=== PATIENT | female | born 1995 | race Caucasian/White ===

== ENCOUNTER 2022-06-10 05:03 | Observation (INO) ==
[2022-06-10] MEDS ORDERED: ONDANSETRON INJ 2 MG/ML 2 ML VIAL IV STA (05:24)
[2022-06-10] MEDS ORDERED: SODIUM CHLORIDE 0.9% 1000ML 1,000 ML IV STA (05:24)
--- NOTE | 2022-06-10 06:01 | Emergency Department Note ---
Impression & Plan Abdominal pain, Nausea & vomiting ED Provider Note CHIEF COMPLAINT: Acute appendicitis HISTORY OF PRESENT ILLNESS: This 26-year-old female patient presents to the emergency department via private vehicle for evaluation of acute appendicitis. The patient states she was seen at [facility] 1 week ago and diagnosed with acute appendicitis with perforation. The patient was treated with IV antibiotics and subsequently discharged on oral Augmentin which she has been taking since that time. Over the weekend, she developed increased pain in the right lower quadrant and tonight she had an episode of vomiting, prompting her to come to the emergency department for evaluation. The patient denies fever. She is not vomiting blood. No diarrhea or constipation. The patient has not eaten or drank anything since 5 PM yesterday. She notes she is scheduled for 06/18/2022 with the surgeon for appendectomy. REVIEW OF SYSTEMS: A 10 system review of systems was performed with positives and pertinent negatives listed in the history of present illness. All other systems were reviewed and are negative. ALLERGIES: None PHYSICAL EXAM: VITALS: Vitals are noted on the nurse's note and reviewed by myself. Vital signs stable. GENERAL: This is a 26 year old female, in no acute distress, nondiaphoretic, well-developed well-nourished. SKIN: The skin was without rashes, erythema, edema, or bruising. There is no tenting of the skin. Capillary refill less than 2 seconds. HEAD: Normocephalic atraumatic. EARS: External auditory canals clear, tympanic membranes pearly harper without erythema or effusion bilaterally. EYES: Pupils equal round and reactive to light and accommodation. Conjunctivae without injection, sclerae without icterus. Extraocular movements intact. NOSE: Patent, turbinates without inflammation or discharge. No sinus tenderness. MOUTH: Mucous membranes moist. Tonsils are not enlarged. Pharynx without erythema or exudate. Uvula midline. Airway patent. Tongue does not deviate. NECK: Supple without nuchal rigidity. No lymphadenopathy. No thyromegaly. Cervical spine is nontender. No JVD. HEART: Regular rate and rhythm without murmurs gallops or rubs. LUNGS: Clear to auscultation bilaterally without wheezes, rales or rhonchi. No retractions or accessory muscle use. ABDOMEN: Positive bowel sounds x 4. Right lower quadrant tenderness to palpation over McBurney's point. The abdomen is otherwise soft, nontender, without masses or organomegaly. Mclain sign negative. No guarding or rebound tenderness. No CVA tenderness bilaterally MUSCULOSKELETAL: No muscle atrophy, erythema, or edema noted. Full range of motion without joint tenderness in all extremities. No tenderness to palpation. Normal gait. Strength 5/5 throughout. NEURO: Patient was alert and oriented to person place and time. Normal sensation to light and sharp touch. Deep tendon reflexes 2+ throughout. No focal neurological deficits. Outside records reviewed EMERGENCY DEPARTMENT COURSE: The patient was seen and evaluated as above. Outside records were obtained from [facility] by case management. These were reviewed by myself. I did discuss the case briefly with Misael Spencer PA-C who spoke with the on-call surgeon who requested we repeat all labs and CT imaging. IV access was obtained, labs drawn. No leukocytosis, anemia, thrombocytopenia. Renal, hepatic function and electrolytes without significant abnormality. hCG negative. Urinalysis negative for blood and evidence of infection. COVID-19 testing is negative. The patient is currently prepping for CT abdomen/pelvis with IV and oral contrast. The case was signed out to Gaurav Scott PA-C pending CT imaging and surgery consult. Please see his dictation regarding final disposition and plan Etiologies such as appendicitis, diverticulitis, obstruction, inflammatory bowel disease, renal colic, PUD, biliary pathology, pancreatitis, mesenteric ischemia, aortic pathology, infections, genitourinary, UTI, perforated viscus, as well as others were entertained. I attest that I have personally reviewed the patient's current medication list. Patient was found to have normal blood pressure on screening and does not require follow-up. The chart was completed utilizing [employer] Speech voice recognition software. Grammatical errors, random word insertions, pronoun errors, and incomplete sentences are an occasional consequence of this system due to software limitations, ambient noise, and hardware issues. Any formal questions or concerns about the content, text, or information contained within the body of this dictation should be directly addressed to the provider for clarification. Past Med/Surg History Medical History Acute appendicitis Social History Smoking Status: Never smoker Feels Safe at Home: Yes Results & Data (ED) Vital Signs Vital Signs - 24 hr 06/10/22 05:07 06/10/22 06:00 06/10/22 06:01 Temperature 36.8 C 36.6 C Temperature Source Temporal Artery Scan Oral Pulse Rate 87 89 Pulse Rate [Apical] 89 Pulse Rhythm Regular Pulse Rhythm [Apical] Regular Pulse Strength [Apical] Normal Respiratory Rate 20 16 16 Respiratory Effort / Characteristics Non-Labored Non-Labored Spontaneous Respiratory Depth Normal Normal Respiratory Pattern Regular Blood Pressure 138/91 Blood Pressure [Left Arm] 109/72 Blood Pressure Mean 106 Blood Pressure Mean [Left Arm] 84 Blood Pressure Position [Left Arm] Semi-fowlers Pulse Oximetry 99 98 99 Oxygen Delivery Method Room Air Room Air Room Air Sepsis Recent Fever Within 48 Hours No Sepsis New/Unexplained Change in Mental Status N/A Sepsis Action Taken by Nursing No Action Required Laboratory Data 06/10/22 05:50 06/10/22 05:50 Lab Results 06/10/22 06/10/22 06/10/22 Range/Units 05:50 05:50 05:50 WBC 8.12 (4.8-10.8) K/ul RBC 4.47 (4.20-5.40) M/uL Hgb 14.2 (12.0-16.0) g/dl POC Hgb (12.0-16.0) g/dl Hct 41.7 (37.0-47.0) % POC Hct (37-47) % MCV 93.3 (80.0-100.0) fL MCH 31.8 (25.0-34.0) pg MCHC 34.1 (32.0-36.0) g/dL RDW Std Deviation 41.9 (36.4-46.3) fL RDW Coeff of Jarad 12.3 (11.5-14.5) % Plt Count 281 (130-400) K/uL MPV 10.4 (9.4-12.4) fL Immature Gran % (Auto) 0.4 % Neut % (Auto) 53.8 % Lymph % (Auto) 33.0 % Lawrence % (Auto) 6.4 % Eos % (Auto) 5.0 % Baso % (Auto) 1.4 % Neut # (Auto) 4.37 (1.40-6.50) K/uL Lymph # (Auto) 2.68 (1.2-3.4) K/uL Lawrence # (Auto) 0.52 (0.11-0.59) K/uL Eos # (Auto) 0.41 (0-0.50) K/uL Baso # (Auto) 0.11 (0-0.2) K/uL Immature Gran # (Auto) 0.03 (0.01-0.20) K/uL POC Sodium (135-144) mmol/L Sodium 139 (136-145) mmol/L POC Potassium (3.3-5.0) mmol/L Potassium 3.7 (3.5-5.1) mmol/L POC Chloride (101-112) mmol/L Chloride 103 (98-107) mmol/L Carbon Dioxide 27 (21-32) mmol/L POC Total CO2 (24-31) mmol/L Anion Gap 9 (3-11) POC Anion Gap (16-25) mmol/L POC BUN (7-18) mg/dl BUN 6 (6-23) mg/dl Creatinine 0.55 L (0.6-1.2) mg/dl POC Creatinine (0.6-1.3) mg/dl Est Cr Clr Drug Dosing 129.2 ml/min Est GFR ( Amer) > 150.0 ml/min Est GFR (Non-Af Amer) 130.4 ml/min BUN/Creatinine Ratio 10.9 (10-20) Glucose 98 (70-99(Fasting)) mg/dl POC Glucose (other) (70-99) mg/dl Calcium 9.5 (8.6-10.3) mg/dl POC Ioniz Calcium Keiko (1.12-1.32) mmol/l Total Bilirubin 0.3 (0.2-1.0) mg/dl AST 16 (13-39) U/L ALT 25 (7-52) U/L Alkaline Phosphatase 80 (34-104) U/L Total Protein 7.6 (6.0-8.3) gm/dl Albumin 4.8 (3.4-5.0) gm/dl Globulin 2.8 (2.5-4.0) gm/dl Albumin/Globulin Ratio 1.7 (0.9-2) Lipase 12 (11-82) U/L HCG, Qual Negative (Negative) Urine Color Urine Appearance (Clear) Urine pH (4.5-7.5) Ur Specific [place] (1.000-1.030) Urine Protein (Negative) Urine Glucose (UA) (Negative) Urine Ketones (Negative) Urine Blood (Negative) Urine Nitrite (Negative) Urine Bilirubin (Negative) Urine Urobilinogen (Negative) Ur Leukocyte Esterase (Negative) SARS-CoV-2, RNA, NAAT (NEGATIVE) 06/10/22 06/10/22 06/10/22 Range/Units 06:05 06:08 06:09 WBC (4.8-10.8) K/ul RBC (4.20-5.40) M/uL Hgb (12.0-16.0) g/dl POC Hgb 15.3 (12.0-16.0) g/dl Hct (37.0-47.0) % POC Hct 45 (37-47) % MCV (80.0-100.0) fL MCH (25.0-34.0) pg MCHC (32.0-36.0) g/dL RDW Std Deviation (36.4-46.3) fL RDW Coeff of Jarad (11.5-14.5) % Plt Count (130-400) K/uL MPV (9.4-12.4) fL Immature Gran % (Auto) % Neut % (Auto) % Lymph % (Auto) % Lawrence % (Auto) % Eos % (Auto) % Baso % (Auto) % Neut # (Auto) (1.40-6.50) K/uL Lymph # (Auto) (1.2-3.4) K/uL Lawrence # (Auto) (0.11-0.59) K/uL Eos # (Auto) (0-0.50) K/uL Baso # (Auto) (0-0.2) K/uL Immature Gran # (Auto) (0.01-0.20) K/uL POC Sodium 139 (135-144) mmol/L Sodium (136-145) mmol/L POC Potassium 3.7 (3.3-5.0) mmol/L Potassium (3.5-5.1) mmol/L POC Chloride 103 (101-112) mmol/L Chloride (98-107) mmol/L Carbon Dioxide (21-32) mmol/L POC Total CO2 26 (24-31) mmol/L Anion Gap (3-11) POC Anion Gap 15.0 L (16-25) mmol/L POC BUN 5 L (7-18) mg/dl BUN (6-23) mg/dl Creatinine (0.6-1.2) mg/dl POC Creatinine 0.5 L (0.6-1.3) mg/dl Est Cr Clr Drug Dosing ml/min Est GFR ( Amer) ml/min Est GFR (Non-Af Amer) ml/min BUN/Creatinine Ratio (10-20) Glucose (70-99(Fasting)) mg/dl POC Glucose (other) 96 (70-99) mg/dl Calcium (8.6-10.3) mg/dl POC Ioniz Calcium Keiko 1.07 L (1.12-1.32) mmol/l Total Bilirubin (0.2-1.0) mg/dl AST (13-39) U/L ALT (7-52) U/L Alkaline Phosphatase (34-104) U/L Total Protein (6.0-8.3) gm/dl Albumin (3.4-5.0) gm/dl Globulin (2.5-4.0) gm/dl Albumin/Globulin Ratio (0.9-2) Lipase (11-82) U/L HCG, Qual (Negative) Urine Color Yellow Urine Appearance Clear (Clear) Urine pH 7.0 (4.5-7.5) Ur Specific [place] 1.005 (1.000-1.030) Urine Protein Negative (Negative) Urine Glucose (UA) Negative (Negative) Urine Ketones Negative (Negative) Urine Blood Negative (Negative) Urine Nitrite Negative (Negative) Urine Bilirubin Negative (Negative) Urine Urobilinogen Negative (Negative) Ur Leukocyte Esterase Negative (Negative) SARS-CoV-2, RNA, NAAT NEGATIVE (NEGATIVE) Administered Medications Discontinued Medications Sodium Chloride (Nss 1000ml) 1,000 mls @ 999 mls/hr IV .Q1H1M STA Stop: 06/10/22 06:24 Last Admin: 06/10/22 06:15 Dose: 999 mls/hr Documented By: ADELIA Ondansetron HCl (Ondansetron Inj 2 Mg/Ml 2 Ml Vial) 4 mg IV NOW STA Stop: 06/10/22 05:25 Last Admin: 06/10/22 06:16 Dose: 4 mg Documented By: ADELIA Discharge Plan Visit Data Chief Complaint: Abdominal Pain Stated Complaint: APPENDEX BURST LAST WEEK,PAIN, VOMITING ED Provider: Jo Ann Baer ED Midlevel Provider: Glenna Marsh Discharge Problem: Abdominal pain, Nausea & vomiting Patient Disposition: Still a Patient Forms Stand Alone Forms: [facility] Referrals Referrals: Jose G Ambriz [Primary Care Provider] -
[2022-06-10 06:23] LABS: iSTAT Creatinine 0.5 mg/dl (0.6-1.3); iSTAT Hemoglobin 15.3 g/dl (12.0-16.0); iSTAT Ionized Calcium 1.07 mmol/l (1.12-1.32); iSTAT Potassium 3.7 mmol/L (3.3-5.0)
[2022-06-10 06:29] LABS: Appearance Urine Clear (Clear); Bilirubin Urine Negative (Negative); Blood Urine Negative (Negative); Color Urine Yellow; Glucose Urine UA Negative (Negative); Ketones Urine Negative (Negative); Leukocyte Esterase Urine Negative (Negative); Nitrite Urine Negative (Negative); Protein Urine Negative (Negative); Specific Gravity Urine 1.005 (1.000-1.030); Urobilinogen Urine Negative (Negative)
[2022-06-10 06:42] LABS: Basophils # (auto) 0.11 K/uL (0-0.2); Basophils % (auto) 1.4 %; Eosinophils # (auto) 0.41 K/uL (0-0.50); Hematocrit (blood only) 41.7 % (37.0-47.0); Hemoglobin 14.2 g/dl (12.0-16.0); Immature Granulocytes # (auto) 0.03 K/uL (0.01-0.20); Immature Granulocytes % (auto) 0.4 %; Lymphocytes # (auto) 2.68 K/uL (1.2-3.4); Mean Corpuscular Hemoglobin 31.8 pg (25.0-34.0); Mean Corpuscular Hgb Conc 34.1 g/dL (32.0-36.0); Mean Corpuscular Volume 93.3 fL (80.0-100.0); Mean Platelet Volume 10.4 fL (9.4-12.4); Monocytes # (auto) 0.52 K/uL (0.11-0.59); Monocytes % (auto) 6.4 %; Neutrophils # (auto) 4.37 K/uL (1.40-6.50); Neutrophils % (auto) 53.8 %; Platelet Count 281 K/uL (130-400); RDW Coefficient of Variation 12.3 % (11.5-14.5); RDW Standard Deviation 41.9 fL (36.4-46.3); Red Blood Count 4.47 M/uL (4.20-5.40); White Blood Count 8.12 K/ul (4.8-10.8)
[2022-06-10 06:46] LABS: Pregnancy Test, Serum Negative (Negative)
[2022-06-10 06:49] LABS: Alanine Aminotransferase 25 U/L (7-52); Albumin Globulin Ratio 1.7 (0.9-2); Albumin Level 4.8 gm/dl (3.4-5.0); Alkaline Phosphatase 80 U/L (34-104); Anion Gap 9 (3-11); Aspartate Aminotransferase 16 U/L (13-39); BUN Creatinine Ratio 10.9 (10-20); Bilirubin,Total 0.3 mg/dl (0.2-1.0); Blood Urea Nitrogen 6 mg/dl (6-23); Calcium 9.5 mg/dl (8.6-10.3); Carbon Dioxide 27 mmol/L (21-32); Chloride 103 mmol/L (98-107); Creatinine Clr Calc Pharmacy 129.2 ml/min; Est GFR (African American) > 150.0 ml/min; Est GFR (Non-African American) 130.4 ml/min; Globulin 2.8 gm/dl (2.5-4.0); Glucose 98 mg/dl (70-99(Fasting)); Lipase 12 U/L (11-82); Potassium 3.7 mmol/L (3.5-5.1); Sodium 139 mmol/L (136-145); Total Protein 7.6 gm/dl (6.0-8.3)
--- NOTE | 2022-06-10 08:11 | Emergency Department Note ---
ED Visit Note Patient signed out to me by my colleague Glenna Marsh PA-C at time of shift change pending CT of the abdomen and pelvis with IV and oral contrast. Patient is here for evaluation of recurrent right lower abdominal pain, was diagnosed with acute appendicitis with perforation 1 week ago at an outside facility, treated with antibiotics and subsequently discharged on Augmentin. She recently developed an increased amount of pain in in the right lower abdomen and had an episode of vomiting. Is scheduled to see general surgery through [facility] for appendectomy. She has received IV fluids and Zofran. When I reevaluated the patient, she was resting comfortably, no active vomiting, pain was under control. She stated that she did still have some discomfort when changing positions. Her CT abdomen and pelvis demonstrates acute appendicitis. I discussed the case with Samantha Galvan PA-C with general surgery who evaluated the patient at bedside and coordinated with Dr. Rutherford and the patient will be taken to the OR. She asked that the patient receive a dose of Zosyn in the emergency department which was ordered. -
[2022-06-10] MEDS ORDERED: OPTIRAY 320 100ml IV ONE (08:15)
--- NOTE | 2022-06-10 08:53 | CT Scan Report ---
ABDOMEN AND PELVIS CT WITH IV AND ORAL CONTRAST CT DOSE: 285.82 mGy.cm HISTORY: Acute right lower quadrant abdominal pain RLQ pain, +appendicitis 06/02/2022 TECHNIQUE: Multiaxial CT images of the abdomen and pelvis were performed following the IV administrat ion of 86 cc of Optiray and oral contrast. A dose lowering technique was utilized adhering to the pr inciples of BAUDILIO. COMPARISON STUDY: None. FINDINGS: The lung bases are clear. The liver, spleen, gallbladder, pancreas, kidneys, and adrenal gl ands are within normal limits. There is no bowel obstruction. There is an 8 mm appendicolith within t he proximal appendiceal lumen. The appendix is dilated measuring up to 1.4 cm and demonstrates thicke aixa wall with mild adjacent periappendiceal inflammation. The appendix is not opacified with contrast . Ileocolic lymph nodes measure up to 1.4 x 0.8 cm. The pelvic organs are unremarkable. Transitional lumbosacral anatomy. No suspicious lytic or blastic osseous lesions. IMPRESSION: 1. Acute uncomplicated appendicitis with appendicolith. 2. No pneumoperitoneum or abscess. 3. Prominent ileocolic lymph nodes are likely reactive. ACT 112: Negative or not required by law. The above report was generated using voice recognition software. It may contain grammatical, syntax o r spelling errors. Electronically signed by: Roberth Villa M.D. 06/10/2022 8:33 AM
[2022-06-10] MEDS ORDERED: PIPERACILLIN/TAZOBACTAM 4.5 GM/120 ML BAG IV ONE (09:16)
--- NOTE | 2022-06-10 09:37 | History & Physical Report ---
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 Of significance the patient was recently evaluated and admitted to [facility] 1 week ago with appendicitis with appendicolith. Due to concern for perforation she was admitted for IV abx for 3 days and discharged to home on oral augmentin with plans for interval appendectomy. She was feeling well up until this weekend when she felt as though her abdominal pain was returning and this was associated with nausea/vomiting. In the ER she underwent a CT ap that showed acute appendicitis with appendicolith without evidence of perforation or abscess. WBC 8. Vital signs are stable. On exam abdomen is soft, non distended, with discomfort elicited in the RLQ and supra-pubic regions. Based on history, exam, imaging we will proceed with taking the patient to the OR for a laparoscopic appendectomy today. She is agreeable with the plan. Continue NPO with IVF. She will be given a dose of pre- op abx. Dr. Lee will be by to obtain consent. As above. Persistent right lower quadrant pain that began about 2 days after discharge from [facility]. She is getting frustrated and would like to proceed with surgery if possible. CT scan does not show any abscess or perforation. We discussed her risks as well as options. We discussed potential risks of bleeding infection injury to another organ such as ureter or bowel leaks DVT PE PA CVA etc. Following our discussion I answered all of her questions. We will proceed today with laparoscopic appendectomy possible open. 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 Of significance the patient was recently evaluated and admitted to [facility] 1 week ago with appendicitis with appendicolith. She actually says she was having pain for a wk prior to evaluation there, but had a miscarriage a few wks ago and thought her pain was related to that. On review of her imaging there was some concern for perforation, therefore she was admitted for IV abx for 3 days and discharged to home on oral augmentin with plans for interval appendectomy. Patient reports she was discharged last thursday and was feeling well and pain free. Unfortunately starting Thursday evening she had some return of abdominal pain that she tried to ignore. Then yesterday evening she developed nausea with multiple bouts of emesis with increasing abdominal pain and decided to come into our ER for evaluation. In the ER she underwent a CT ap that showed acute appendicitis with appendicolith without evidence of perforation or abscess. Also of note she mentions being diagnosed with appendicitis at 17 years old, but due to having PVC's around that time it was postpone until after ablation and she never underwent appendectomy. She has no past surgical history on her abdomen. She has been NPO since yesterday. Allergies Allergy/AdvReac Type Severity Reaction Status Date / Time No Known Allergies Allergy Unverified 06/10/22 10:24 Home Medications Medication Instructions Recorded Confirmed Type amoxicillin 875 mg-potassium 1 tab PO BID 06/10/22 06/10/22 History clavulanate 125 mg tablet Past Med/Surg History Medical History Acute appendicitis Social History Smoking Status: Never smoker Feels Safe at Home: Yes Review of Systems Constitutional: + chills and + sweats; no fever Respiratory: no dyspnea Cardiovascular: no chest pain Gastrointestinal: + abdominal pain (RLQ and across lower abdomen bilaterally), + bloating, + nausea and + vomiting; no change in bowel habits Physical Exam Physical Exam: awake/alert, no distress Constitutional: well developed and well nourished Respiratory: normal respiratory effort Cardiovascular: Rate/Rhythm: regular rate and regular rhythm Gastrointestinal (Abdomen): Inspection/Auscultation: abdomen not distended Percussion/Palpation: + abdomen tender (ttp in RLQ and supra pubic region) and abdomen soft Results & Data Results & Data Vital Signs (Past 12 Hours) Vital Signs Temp Pulse Pulse Resp BP BP Pulse Ox 06/10/22 07:38 86 14 114/69 100 06/10/22 06:01 36.6 C 89 16 109/72 99 06/10/22 06:00 89 16 98 06/10/22 05:07 36.8 C 87 20 138/91 99 O2 Del Method 06/10/22 07:38 Room Air 06/10/22 06:01 Room Air 06/10/22 06:00 Room Air 06/10/22 05:07 Room Air Diagnostic Findings ABDOMEN AND PELVIS CT WITH IV AND ORAL CONTRAST CT DOSE: 285.82 mGy.cm HISTORY: Acute right lower quadrant abdominal pain RLQ pain, +appendicitis 06/02/2022 TECHNIQUE: Multiaxial CT images of the abdomen and pelvis were performed following the IV administration of 86 cc of Optiray and oral contrast. A dose lowering technique was utilized adhering to the principles of ALARA. COMPARISON STUDY: None. FINDINGS: The lung bases are clear. The liver, spleen, gallbladder, pancreas, kidneys, and adrenal glands are within normal limits. There is no bowel obstruction. There is an 8 mm appendicolith within the proximal appendiceal lumen. The appendix is dilated measuring up to 1.4 cm and demonstrates thickened wall with mild adjacent periappendiceal inflammation. The appendix is not opacified with contrast. Ileocolic lymph nodes measure up to 1.4 x 0.8 cm. The pelvic organs are unremarkable. Transitional lumbosacral anatomy. No suspicious lytic or blastic osseous lesions. IMPRESSION: 1. Acute uncomplicated appendicitis with appendicolith. 2. No pneumoperitoneum or abscess. 3. Prominent ileocolic lymph nodes are likely reactive. ACT 112: Negative or not required by law. The above report was generated using voice recognition software. It may contain grammatical, syntax or spelling errors. Electronically signed by: Roberth Villa M.D. 06/10/2022 8:33 AM PG Care Time/CCT Total # of Minutes Spent Total Time Spent with Patient: Total time spent is greater than 50% in coordination of care (as documented) at patient's floor/unit and/or counseling patient: Coding Level of Care Code 88264 INT INP/OBS CARE 2/55MIN Diagnoses Acute appendicitis K35.80
[2022-06-10] MEDS ORDERED: ONDANSETRON INJ 2 MG/ML 2 ML VIAL IV PRN ×2 (11:35→15:23)
[2022-06-10] MEDS ORDERED: ePHEDrine sulfate 50 MG/ML AMP IV PRN (11:35)
[2022-06-10] MEDS ORDERED: ATROPINE SULFATE 0.1 MG/ML 10ML SYR IV PRN (11:35)
--- NOTE | 2022-06-10 11:35 | Anesthesiology Consultation ---
Date of Service June 10, 2022 Assessment & Plan Chart Review Chart Review: client development consultant initiated History Surgery Operation Date: 06/10/22 14:55 Proposed Procedures p Laparoscopic Appendectomy - Kd Lee DO Height/Weight Height: 5 ft Weight: 62.6 kg Allergies Allergy/AdvReac Type Severity Reaction Status Date / Time No Known Allergies Allergy Unverified 06/10/22 10:24 Medications Home Medications Medication Instructions Recorded Confirmed Last Taken amoxicillin 875 mg-potassium 1 tab PO BID 06/10/22 06/10/22 06/09/22 clavulanate 125 mg tablet Past Medical History Medical History Acute appendicitis Social History Smoking Status: Never smoker Physical Exam Vital Signs Last Vital Signs Temp 97.9 F 06/10/22 06:01 Pulse 80 06/10/22 11:00 Resp 16 06/10/22 11:00 BP 103/66 06/10/22 11:00 Pulse Ox 98 06/10/22 11:00 O2 Del Method Room Air 06/10/22 11:00 Testing Laboratory Results 06/10/22 05:50 06/10/22 05:50 Urine Color Yellow 06/10/22 06:05 Urine Appearance Clear (Clear) 06/10/22 06:05 Urine pH 7.0 (4.5-7.5) 06/10/22 06:05 Ur Specific [place] 1.005 (1.000-1.030) 06/10/22 06:05 Urine Protein Negative (Negative) 06/10/22 06:05 Urine Glucose (UA) Negative (Negative) 06/10/22 06:05 Urine Ketones Negative (Negative) 06/10/22 06:05 Urine Nitrite Negative (Negative) 06/10/22 06:05 Ur Leukocyte Esterase Negative (Negative) 06/10/22 06:05 06/10/22 06:08 POC Glucose (other) 96
[2022-06-10] MEDS ORDERED: BUPIVACAINE/EPINEPHRINE 0.5% MPF 1:200,000 30 ML VIAL ONE (12:15)
[2022-06-10] MEDS ORDERED: MIDAZOLAM HCL 1 MG/ML 2ML VIAL ONE (12:26)
[2022-06-10] MEDS ORDERED: fentaNYL citrate PF 100 MCG/2 ML VIAL ONE (12:26)
[2022-06-10] MEDS ORDERED: ONDANSETRON INJ 2 MG/ML 2 ML VIAL ONE (12:56)
[2022-06-10] MEDS ORDERED: DEXAMETHASONE SOD INJ 4 MG/ML VIAL ONE (12:56)
[2022-06-10] MEDS ORDERED: PROPOFOL IV EMULSION 10 MG/ML 20 ML VIAL IV ONE (12:57)
[2022-06-10] MEDS ORDERED: KETOROLAC 30 MG/ML VIAL ONE (12:57)
[2022-06-10] MEDS ORDERED: LIDOCAINE 2% MPF LOCAL 5 ML VIAL ONE (12:57)
[2022-06-10] MEDS ORDERED: ROCURONIUM BROMIDE 10 MG/ML 5 ML VIAL IV ONE ×5 (12:57)
[2022-06-10] MEDS ORDERED: NEOSTIGMINE METHYLSULFATE 1 MG/ML 10ML VIAL ONE (13:20)
[2022-06-10] MEDS ORDERED: GLYCOPYRROLATE 0.2 MG/ML VIAL ONE (13:20)
--- NOTE | 2022-06-10 13:41 | Operative Report ---
PG Post Operative Report Pre & Post Diagnosis Operation Date: 06/10/22 14:55 Pre-Op Diagnosis: Acute appendicitis Post-Op Diagnosis: Acute appendicitis I identified the patient and participated in the time-out.: Yes Procedure Operation Date: 06/10/22 14:55 Actual Procedures p Laparoscopic Appendectomy(Not Applicable) - Kd Lee DO Surgeon Kd Lee DO Investigations Manager Dr. Sangeeta MD Estimated Blood Loss 10 Findings Consistent with Post-Op Diagnosis Specimens appendix Description of Procedure After informed consent was obtained the patient was taken to the operating room and placed in supine position. After successful intubation a Mckeon catheter was placed and the left arm was tucked. A Mckeon catheter was inserted sterilely. I began by making a periumbilical incision with an 11 blade scalpel and carried this down through the soft tissue using electrocautery. The anterior rectus fascia was opened using electrocautery and 2 #0 Vicryl stay sutures were placed. The peritoneum was elevated using hemostats and incised under direct vision using a Metzenbaum scissor. A finger sweep was performed. A 12 mm Dowling trocar was placed and the abdomen was insufflated to 18 mmHg. A laparoscope was inserted and the abdomen was examined in 360. A suprapubic 5 mm port and a left lower quadrant 12 mm port were placed under direct vision. The patient was air planed to the left as well as placed in a slight Trendelenburg position. We began by looking in the right lower quadrant. We were able to readily identify the appendix and it was grossly inflamed. It had some fat wrapping and was actually adhesed to the sigmoid colon. It had not perforated. There is a small amount of purulent fluid in the right lower quadrant and the pelvis. We immediately irrigated and suctioned this out. I was able to use primarily blunt dissection to pull the appendix away from the right lower quadrant sidewall. I was then able to use a BANDAR brown cartridge stapler to transect first the mesentery of the appendix. Next I used a purple cartridge 60 mm stapler to staple off the appendix itself at its base with the cecum. There was what appeared to be an appendicolith in the midportion of the appendix. It was then placed into an Endo Catch bag and removed from the camera port site. We thoroughly irrigated the right lower quadrant as well as the pelvis. There was adequate hemostasis. I ran the small bowel backwards from the terminal ileum for about 6 feet all of which was normal. All the peritoneal surfaces were normal. Small/ large bowel, liver, stomach etc. all appeared grossly normal. We did a final irrigation and then removed all the trochars and desufflated the abdomen. The fascia of the camera port as well as the left lower quadrant were closed using 0 Vicryl in [id number] fashion. Wounds were all irrigated and closed using 4-0 Monocryl. Marcaine was injected around them for postoperative analgesia and skin glue used as a dressing. The patient was awakened extubated and transferred to recovery in stable condition. My physician optometry assistant was not available and therefore my partner Dr. Beatriz Sharma scrubbed into the case. She was there for the entire case and assisted with access to the abdomen, running the camera during my dissection as well as assisting with wound closure and dressing placement. I attest to the content of the Intraoperative Record and any orders documented therein. Any exceptions are noted below.
[2022-06-10] MEDS: fentaNYL citrate PF 100 MCG/2 ML VIAL IV PRN ×3 (14:00→14:47)
[2022-06-10] MEDS ORDERED: DROPERIDOL 5 MG/2 ML VIAL IV STA (14:40)
--- NOTE | 2022-06-10 14:55 | Anesthesiology Progress Note ---
Date of Service June 10, 2022 Anesthesia Post Procedure Vital Signs Vital Signs: Temp Pulse Pulse Resp BP BP Pulse Ox 06/10/22 14:50 36.4 C L 79 12 104/66 97 06/10/22 14:40 78 14 102/71 98 06/10/22 14:30 74 16 103/67 99 06/10/22 14:20 72 19 113/67 100 06/10/22 14:10 64 16 109/64 100 06/10/22 14:00 67 19 115/77 100 06/10/22 13:50 64 16 110/77 100 06/10/22 13:42 36.2 C L 72 19 105/67 100 06/10/22 12:12 36.5 C 84 16 114/75 99 06/10/22 11:00 80 16 103/66 98 06/10/22 09:30 86 16 99 06/10/22 07:38 86 14 114/69 100 06/10/22 06:01 36.6 C 89 16 109/72 99 06/10/22 06:00 89 16 98 06/10/22 05:07 36.8 C 87 20 138/91 99 O2 Del Method O2 Flow Rate 06/10/22 14:50 Room Air 06/10/22 14:40 Room Air 06/10/22 14:30 Room Air 06/10/22 14:20 Room Air 06/10/22 14:10 Oxymask 5 06/10/22 14:00 Oxymask 5 06/10/22 13:50 Oxymask 9 06/10/22 13:42 Oxymask 9 06/10/22 12:12 Room Air 06/10/22 11:00 Room Air 06/10/22 09:30 Room Air 06/10/22 07:38 Room Air 06/10/22 06:01 Room Air 06/10/22 06:00 Room Air 06/10/22 05:07 Room Air Pain Intensity Lower Abdomen: Pain Intensity: 4 Transfer of Care Handoff Completed per policy Notes Mental Status: alert / awake / arousable and participated in evaluation Patient Amnestic to Procedure: Yes Nausea / Vomiting: adequately controlled Pain: adequately controlled Airway Patency, RR, SpO2: stable & adequate BP & HR: stable & adequate Hydration State: stable & adequate Anesthetic Complications: no major complications apparent and Pt Satisfied with anesthetic care
[2022-06-10] MEDS ORDERED: oxyCODONE HCL IR 5 MG TAB (IMMEDIATE RELEASE) PO PRN ×2 (15:23)
[2022-06-10] MEDS ORDERED: HYDROmorphone INJ 0.5 MG/0.5 ML SYR IV PRN ×2 (15:23)
[2022-06-10] MEDS ORDERED: IBUPROFEN 600 MG TAB PO PRN (15:23)
[2022-06-10] MEDS: LACTATED RINGER'S 1,000 ML IV SCH (15:25)
[2022-06-10] MEDS: ACETAMINOPHEN 1,000 MG/100 ML VIAL IV SCH ×2 (16:01→23:00)
[2022-06-10] MEDS ORDERED: Nursing to Pharmacy Communication SCH (19:15)
[2022-06-11] MEDS: LACTATED RINGER'S 1,000 ML IV SCH (01:20)
[2022-06-11] MEDS: ACETAMINOPHEN 1,000 MG/100 ML VIAL IV SCH (08:00)
--- NOTE | 2022-06-11 08:40 | Surgery Progress Note ---
Date of Service June 11, 2022 Assessment & Plan (1) Acute appendicitis: Plan: Postoperative day #1 She is doing well I want her to continue the oral antibiotic she had at home which she said she has another 5 days left Postop instructions discussed Follow-up with me in 1 week Okay for discharge today Admission and Anticipated Discharge Date Admission Date: June 10, 2022 Subjective Patient seen. She is feeling much better than yesterday. She is tolerating a diet. Physical Exam Physical Exam: Alert and oriented no acute distress Abdomen is soft with appropriate incisional tenderness. Incisions look good Results & Data Vital Signs (Past 12 Hours) Vital Signs Temp Pulse Resp BP Pulse Ox O2 Del Method 06/11/22 07:21 36.8 C 87 14 103/63 97 Room Air 06/11/22 04:18 36.6 C 81 16 98/66 L 97 Room Air 06/10/22 23:05 36.7 C 93 H 16 106/68 96 Room Air PG Care Time/CCT Total # of Minutes Spent Total Time Spent with Patient: Total time spent is greater than 50% in coordination of care (as documented) at patient's floor/unit and/or counseling patient: Coding Level of Care Code 52303 Post Operative Follow-Up Diagnoses Acute appendicitis K35.30 Acute appendicitis type: with localized peritonitis Appendicitis abscess presence: without abscess Appendicitis gangrene presence: without gangrene Appendicitis perforation presence: without perforation (1) Acute appendicitis Acute appendicitis type: with localized peritonitis Appendicitis abscess presence: without abscess Appendicitis gangrene presence: without gangrene Appendicitis perforation presence: without perforation Qualified Code(s): K3 5.30 - Acute appendicitis with localized peritonitis, without perforation or gangrene
--- NOTE | 2022-06-23 09:31 | Discharge Summary ---
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 Of significance the patient was recently evaluated and admitted to [facility] 1 week ago with appendicitis with appendicolith. She actually says she was having pain for a wk prior to evaluation there, but had a miscarriage a few wks ago and thought her pain was related to that. On review of her imaging there was some concern for perforation, therefore she was admitted for IV abx for 3 days and discharged to home on oral augmentin with plans for interval appendectomy. Patient reports she was discharged last thursday and was feeling well and pain free. Unfortunately starting Thursday evening she had some return of abdominal pain that she tried to ignore. Then yesterday evening she developed nausea with multiple bouts of emesis with increasing abdominal pain and decided to come into our ER for evaluation. In the ER she underwent a CT ap that showed acute appendicitis with appendicolith without evidence of perforation or abscess. Also of note she mentions being diagnosed with appendicitis at 17 years old, but due to having PVC's around that time it was postpone until after ablation and she never underwent appendectomy. She has no past surgical history on her abdomen. She has been NPO since yesterday. Principal Diagnosis acute appendicitis Discharge Exam awake/alert, no distress Respiratory normal respiratory effort Gastrointestinal (Abdomen) Inspection/Auscultation: + abdominal surgical incision (c/d/i, no signs of infection) Percussion/Palpation: + abdomen tender (expected stevie incisional discomfort) and abdomen soft Discharge Data Allergies Allergy/AdvReac Type Severity Reaction Status Date / Time No Known Allergies Allergy Unverified 06/10/22 10:24 Consultations 06/10/22 09:47 ED Decision to Admit Stat Procedures Performed Operation Date: 06/10/22 14:55 Actual Procedures p Laparoscopic Appendectomy(Not Applicable) - Kd Lee, Ordered Studies 06/10/22 05:53 CT abd pelvis oral and IV con Stat Hospital Course (1) Acute appendicitis: This is a 26yF who presented to the [facility] ED on 06/10/22 with abdominal pain. Workup in the ED showed a WBC of [address] a/p concerning for acute appendicitis. She had a recent hospitalization at [place] and was admitted for a couple days of IV abx for presumed perforated appendicitis. She was discharged on augmentin with plans to follow up for interval appendectomy. Due to return of patient's symptoms she presented to our ER. The patient was tender to palpation in the RLQ. CT without evidence of appendix perforation. Patient made NPO with IVF and booked for the OR. On 06/10 the patient went to the OR with Dr. Lee for a laparoscopic appendectomy. The patient tolerated the procedure well, see operative report for full details. Post operatively the patient's diet was advanced, pain managed on prn meds, and incisions clean/dry/intact. On POD#1 the patient was deemed stable for discharge to home. Total Time Total Time Spent Total Time Spent (In Minutes): 15 Discharge Plan Discharge Items Patient Disposition: Home - Self-Care Reason For Visit: APPENDICITIS Discharge Diagnosis: laparoscopic appendectomy Condition on Discharge: Fair Activity: Per Instructions section Lifting: No more than 10 pounds Bathing Comment: may shower; no soaking in tubs/pools x2 weeks Exercise/Sports: Wait until after follow-up appointment Driving/Machine Use: no driving while taking narcotics for pain Non-emergency contact: Surgeon Call non-emergency contact if: you have any medication questions, your pain is worsening, you have a fever, your temperature is above 101.5, your wound has increased redness, your wound has increased drainage and your wound pain has increased Follow-up/Referrals: Kd Lee DO [Surgeon] - 06/24/22 10:00 am () Jose G Ambriz [Primary Care Provider] - Diet: Regular Addtl Attending Provider Instructions: You may purchase Tylenol and/or Ibuprofen over the counter for additional pain control if needed over the next few days. take per manufacturers instructions Pending Studies at Discharge: Yes Studies:: surgical pathology Stand-Alone Forms: [email or web address], Smoking Cessation Medications and DC Order Prescriptions: New oxycodone 5 mg tablet 5 - 10 mg PO .[id number] PRN (Reason: pain, for initial therapy, max 6 tabs per day) Qty: 12 0RF Continued amoxicillin-pot clavulanate 875-125 mg tablet 1 tab PO BID Discharge Orders: Discharge Order (Routine); Ordered 06/11/22 Ordered By: Kd Naik/Other Patient Handouts: Appendectomy Admission Data Admit Date/Time: 06/10/22 13:47 Attending Provider: Kd Lee Admit Provider: Kd Lee Primary Care Provider: Jose G Ambriz Other Interventions: Discharge Summary Assessment (RN) Last Done: 06/11/22 10:09 Coding Level of Care Code 93546 IN/OBS DISCH 30 MIN/LESS Diagnoses Acute appendicitis K35.30 Acute appendicitis type: with localized peritonitis Appendicitis abscess presence: without abscess Appendicitis gangrene presence: without gangrene Appendicitis perforation presence: without perforation
== END 2022-06-11 11:29 | disposition home or self-care (01) ==
LOC: ED 05:03 → ASU 12:39 → 3N 12:39 → ASU 14:37